=== PATIENT | female | born 1985 | race Caucasian/White ===

== ENCOUNTER 2017-01-27 09:46 | Inpatient (IN) | payer BC, OTHER ==
--- NOTE | 2017-01-27 10:10 | PCM.PREANE ---
Preanesthetic Assessment - Anesthesia/Transfusion/Family Hx Anesthesia History: Prior Anesthesia Without Reaction Family History of Anesthesia Reaction: No Transfusion History: No Prior Transfusion(s) - Review of Systems General: No Symptoms Pulmonary: No Symptoms Cardiovascular: No Symptoms Gastrointestinal: No symptoms, Other (GERD of ) Neurological: Headache (hx of migraine(s)) Other: Reports: None - Physical Assessment Height: 5 ft 4 in Weight: 167 lb ASA Class: 2 Mental Status: Alert & Oriented x3 Airway Class: Mallampati = 1 Dentition: Reports: Normal Dentition Thyro-Mental Finger Breadths: 3 Mouth Opening Finger Breadths: 3 ROM/Head Extension: Full Lungs: Clear to auscultation, Normal respiratory effort Cardiovascular: Regular Rate, Regular Rhythm, No Murmurs - Allergies Allergies/Adverse Reactions: Allergies Allergy/AdvReac Type Severity Reaction Status Date / Time Sulfa (Sulfonamide Allergy Hives Verified 01/22/17 14:33 Antibiotics) - Blood Blood Available: Yes Product(s) Available: PRBC (T and S) - Anesthesia Plan Pre-Op Medication Ordered: Antacids - Acknowledgements Anesthesia Type Planned: Spinal Pt an Appropriate Candidate for the Planned Anesthesia: Yes Alternatives and Risks of Anesthesia Discussed w Pt/Guardian: Yes Pt/Guardian Understands and Agrees with Anesthesia Plan: Yes PreAnesthesia Questionnaire Other HEENT History: wears glasses/contacts Cardiovascular History: Reports: Hypertension Other Cardiovascular History: hx of hypertention with previous , none now Respiratory History: Reports: Asthma Other Respiratory History: hx of asthma as a child, outgrew it Gastrointestinal History: Reports: Chronic Constipation Genitourinary History: Reports: None MANAGER CLIENT SERVICE History: Reports: Musculoskeletal History: Reports: None Neurological History: Reports: Migraines Psychiatric History: Reports: None Endocrine/Metabolic History: Reports: None Hematologic History: Reports: None Immunologic History: Reports: None Oncologic (Cancer) History: Reports: None Dermatologic History: Reports: None - Past Surgical History Head Surgeries/Procedures: Reports: None HEENT Surgical History: Reports: Oral Surgery Other HEENT Surgeries/Procedures: dental Cardiovascular Surgical History: Reports: None Respiratory Surgical History: Reports: None GI Surgical History: Reports: None Female Surgical History: Reports: Breast Biopsy, Section Endocrine Surgical History: Reports: None Neurological Surgical History: Reports: None Musculoskeletal Surgical History: Reports: None Oncologic Surgical History: Reports: None Dermatological Surgical History: Reports: None - SUBSTANCE USE Smoking Status *Q: Never Smoker Recreational Drug Use History: No - HOME MEDS Home Medications: Home Meds Aspirin [Adult Low Dose Aspirin EC] 81 mg PO ASDIRECTED 01/22/17 [History] Iron 18 mg PO DAILY 01/22/17 [History] Vit No.78/Iron/Fa [Prenatabs FA] 1 tab PO DAILY 01/22/17 [History]
[2017-01-27] MEDS ORDERED: Sodium Chloride 0.9% 10 ML Syringe FLUSH PRN (10:11)
[2017-01-27] MEDS ORDERED: Sodium Chloride 0.9% 2.5 ML Syringe FLUSH PRN (10:11)
[2017-01-27] MEDS ORDERED: Citric Acid/Sodium Citrate Solution 30 ML Cup PO SCH (10:15)
[2017-01-27] MEDS ORDERED: Ondansetron 4 MG/2 ML SDV ONE (10:21)
[2017-01-27] MEDS ORDERED: Sodium Chloride 0.9% 20 ML ONE (10:21)
[2017-01-27] MEDS ORDERED: Oxytocin 10 Units/1 ML SDV ONE (10:21)
[2017-01-27] MEDS ORDERED: ePHEDrine 50 MG/ML SDV ONE (10:21)
[2017-01-27] MEDS ORDERED: ceFAZolin 1 GM Vial ONE (10:21)
[2017-01-27] MEDS ORDERED: Morphine PF 10 MG/10 ML SDV ONE (10:24)
[2017-01-27] MEDS: Lactated Ringers 1,000 ML IV SCH ×2 (10:55→11:22)
[2017-01-27] MEDS ORDERED: fentaNYL 100 MCG/2 ML SDV ONE (12:41)
[2017-01-27] MEDS ORDERED: Phenylephrine/Normal Saline 100 MCG/ML 10 ML Syringe ONE (12:55)
[2017-01-27] MEDS ORDERED: diphenhydrAMINE 50 MG/ML SDV IVPUSH PRN ×2 (13:16→13:48)
[2017-01-27] MEDS ORDERED: Simethicone 80 MG Tab.Chew PO PRN (13:16)
[2017-01-27] MEDS ORDERED: Ondansetron 4 MG/2 ML SDV IV PRN (13:16)
[2017-01-27] MEDS ORDERED: Acetaminophen/oxyCODONE 325-5 MG Tab PO PRN ×2 (13:16→13:50)
[2017-01-27] MEDS ORDERED: Lanolin 100% Cream 7 GM Tube TOP PRN (13:16)
[2017-01-27] MEDS ORDERED: Bisacodyl 10 MG Supp RECTAL PRN (13:16)
[2017-01-27] MEDS ORDERED: Ibuprofen 800 MG Tab PO PRN (13:16)
[2017-01-27] MEDS ORDERED: Aluminum Hydroxide/Magnesium Hydroxide/Simethicone Susp 30 ML Cup PO PRN (13:16)
[2017-01-27] MEDS ORDERED: Metoclopramide 10 MG/2 ML SDV ONE (13:16)
--- NOTE | 2017-01-27 13:26 | PCM.OPNOTE ---
- General Post-Op/Procedure Note Date of Surgery/Procedure: 01/27/17 Operative Procedure(s): Repeat LTCS Findings: Term male APGARs 8, 9 weight 8 lb 3 oz Intact placenta with 3 V cord Pre Op Diagnosis: 39 week IUP. Previous LTCs, desires repeat Post-Op Diagnosis: Same Anesthesia Technique: Spinal Primary Surgeon: Vashti Curtis Fluid Replacement, Intraop: 1,200 EBL in mLs: 500 Complications: None known Condition: Good Free Text/Narrative:: Dictation [id number]
[2017-01-27] MEDS ORDERED: Lactated Ringers 1,000 ML IV SCH (13:30)
[2017-01-27] MEDS: Ketorolac 30 MG/ML SDV IVPUSH SCH ×2 (13:36→19:40)
[2017-01-27] MEDS ORDERED: Nalbuphine 10 MG/1 ML Vial IVPUSH PRN (13:48)
[2017-01-27] MEDS ORDERED: Naloxone 0.4 MG/ML Syringe IVPUSH PRN (13:48)
[2017-01-27] MEDS ORDERED: fentaNYL 100 MCG/2 ML SDV IVPUSH PRN (13:50)
--- NOTE | 2017-01-27 14:47 | PCM.POSTAN ---
POST ANESTHESIA ASSESSMENT - MENTAL STATUS Mental Status: alert, oriented - RESPIRATORY Respiratory Status: respiratory rate WNL, airway patent, O2 saturation stable - CARDIOVASCULAR CV Status: pulse rate WNL, blood pressure stable - GASTROINTESTINAL GI Status: no symptoms - POST OP HYDRATION Hydration Status: adequate & stable
--- NOTE | 2017-01-27 14:52 | OR ---
SURGEON: Vashti Curtis M.D. DATE OF PROCEDURE: 01/27/2017 PREOPERATIVE DIAGNOSES: 1. A 39 weeks intrauterine . 2. Previous section, desires repeat. POSTOPERATIVE DIAGNOSES: 1. A 39 weeks intrauterine . 2. Previous section, desires repeat. PROCEDURE: Repeat low transverse section. ESTIMATED BLOOD LOSS: 500 mL. ANESTHESIA: Spinal. FLUIDS: 1200 mL crystalloid. COMPLICATIONS: None. FINDINGS: Term male , score 8 at 1 minute, 9 at 5 minutes. Weight of 8 pounds 3 ounces. Intact placenta, 3-vessel cord. Normal appearing pelvis. DISPOSITION: The patient to PACU, nursery, stable. PROCEDURE IN DETAIL: Chana is a 31-year-old, G2, P1, at 39 weeks gestational age, who presents today for scheduled repeat delivery. Risks of the procedure have been discussed with her. Proper consent was obtained. The patient was taken to the operating room where she underwent spinal anesthetic, was then placed in the dorsal lithotomy position with leftward tilt. SCDs to lower extremities. Orellana to gravity. She was prepped and draped in the usual sterile fashion. Ancef delivered via IV for prophylactic measures. A time-out was performed. Anesthesia was tested and found to be adequate. Previous Pfannenstiel scar was now excised, carried down to the level of the rectus fascia. Rectus fascia was then incised in midline and lateralized on either side sharply and bluntly. The superior aspect of fascia was tented upward, dissected sharply and bluntly away from underlying muscle from the inferior aspect of the fascia. Rectus muscles in the midline. The peritoneum was tented upward and entered sharply. The peritoneum was now lateralized bluntly. Uterine position and position palpated. Self-retaining retractor gently placed. Uterovesical reflection was visualized. Bladder flap was created sharply and bluntly. Bladder was mobilized away from lower uterine segment. Low transverse hysterotomy was now performed. Uterine cavity was entered with the blunt end of the scalpel. Hysterotomy was lateralized bluntly. Amniotomy revealed light meconium-stained amniotic fluid. The infant's head was flexed, delivered from the pelvis. Fundal pressure was applied. The 's head was delivered followed by anterior shoulder, posterior shoulder, main body without difficulty. The infant's oropharynx and nares were bulb suctioned. Cord clamped x2 and cut. Infant was handed off to attending nursing staff. Cord arterial, cord venous, cord blood samples obtained. The placenta was now delivered intact after obtaining the arterial venous and cord blood gases. The uterine cavity was cleared of all clot and debris. Hysterotomy was repaired using 0 Vicryl in continuous running locked fashion, re-imbricated with 0 Vicryl in continuous running fashion. Posterior aspect of the uterus was inspected, no defects or hematomas were found be forming. The region was well irrigated suction dried. Colonic gutters were now cleared of all clot and debris, well irrigated suction dried. The hysterotomy was once again inspected. Serosal oozing was cauterized. Area in the midline was still having some bleeding, therefore, was to be plicated with [id number] suture. Hemostasis appears evident. The self-retaining retractor now gently removed. Bladder blade was placed. Hysterotomy once again inspected, found to be hemostatic. The bladder blade was now removed. Rectus muscles were reapproximated with inverted mattress suture technique using 0 Vicryl. The anterior aspect of the muscle, posterior aspect of fascia was closely inspected. Any oozing were cauterized. The rectus fascia was reapproximated using 0 Vicryl in continuous running fashion beginning laterally on either side meeting in the midline. Subcutaneous tissue was well irrigated and suction dried. Any areas of oozing were cauterized. The skin edges were reapproximated using 3-0 Vicryl subcuticular fashion on a Juan Manuel needle and the incision was reimbricated with 1/2-inch Steri- Strips and Mastisol. The uterus remained firm. Sponge, instrument, and needle counts correct x2. The patient tolerated the procedure well. She will go to PACU in stable condition and infant to nursery. DANE / KOJO /[id number]
--- NOTE | 2017-01-27 17:28 | PCM.SN ---
- Free Text/Narrative Note: Having some nausea and light headedness. Otherwise, pain controlled. Denies chest pain or headache. Just received zofran. BP 141/77, pulse 89, afebrile Will treat with antiemetics as needed, encouraged rest. going well.
[2017-01-28] MEDS: Ketorolac 30 MG/ML SDV IVPUSH SCH ×3 (01:25→13:38)
[2017-01-28] MEDS: Docusate Sodium 100 MG Cap PO SCH ×3 (01:25→21:00)
--- NOTE | 2017-01-28 06:59 | PCM.PNPP ---
- General Info Date of Service: 01/28/17 Subjective Update: Patient is feeling better this morning, denies nausea or light headedness. Pain is well controlled. Rested through the night. Functional Status: Reports: pain controlled, tolerating diet - Review of Systems Pulmonary: Denies: shortness of breath Cardiovascular: Denies: Chest Pain, Palpitations, Lightheadedness Gastrointestinal: Denies: Nausea, Vomiting Genitourinary: Denies: flank pain Psychiatric: Reports: no symptoms - General Info Date of Service: 01/28/17 - Patient Data Vital Signs - most recent: Last Vital Signs Temp 36.6 C 01/28/17 05:00 Pulse 80 01/28/17 05:00 Resp 14 01/28/17 06:00 BP 130/73 01/28/17 05:00 Pulse Ox 98 01/28/17 06:00 Weight - most recent: 75.75 kg I&O - last 24 hours: Intake & Output 01/27/17 01/27/17 01/28/17 14:59 22:59 06:59 Intake Total 3200 1800 Output Total 200 1500 Balance 3000 300 Lab Results - last 24 hrs: Laboratory Results - last 24 hr 01/27/17 01/27/17 01/28/17 Range/Units 10:44 10:44 04:56 WBC 11.42 H (4.0-11.0) K/uL RBC 4.15 L (4.30-5.90) M/uL Hgb 12.0 9.4 L (12.0-16.0) g/dL Hct 36.0 28.5 L (36.0-46.0) % MCV 86.7 (80.0-98.0) fL MCH 28.9 (27.0-32.0) pg MCHC 33.3 (31.0-37.0) g/dL RDW Std Deviation 41.1 (28.0-62.0) fl RDW Coeff of Sergio 13 (11.0-15.0) % Plt Count 279 (150-400) K/uL MPV 9.30 (7.40-12.00) fL Nucleated RBC % 0.0 /100WBC Nucleated RBCs # 0 K/uL Blood Type A POSITIVE Antibody Screen NEGATIVE Med Orders - Current: Current Medications Al Hydroxide/Mg Hydroxide (Mag-Al Plus) 30 ml PO Q8H PRN PRN Reason: Heartburn Bisacodyl (Dulcolax) 10 mg RECTAL .ONCE PRN PRN Reason: Constipation Citric Acid/Sodium Citrate (Bicitra Solution) 30 ml PO .ONCE FORMERLY [facility], [facility]1983 Last Admin: 01/27/17 12:16 Dose: 30 ml Diphenhydramine HCl (Benadryl) 25 mg IVPUSH Q6H PRN PRN Reason: Itching or Nausea Diphenhydramine HCl (Benadryl) 12.5 - 25 mg IVPUSH Q4H PRN PRN Reason: Itching Stop: 01/28/17 13:49 Last Admin: 01/27/17 17:55 Dose: 12.5 mg Docusate Sodium (Colace) 100 mg PO BID [facility], [facility]1983 Last Admin: 01/28/17 01:25 Dose: 100 mg Emollient Ointment (Lansinoh Hpa) 0 gm TOP ASDIRECTED PRN PRN Reason: Sore Nipples Fentanyl (Sublimaze) 25 - 50 mcg IVPUSH Q30M PRN PRN Reason: Pain Lactated Ringer's (Ringers, Lactated) 1,000 mls @ 500 mls/hr IV .BOLUS FOR[facility], [facility]1983 Last Admin: 01/27/17 11:22 Dose: 500 mls/hr Lactated Ringer's (Ringers, Lactated) 1,000 mls @ 125 mls/hr IV ASDIRECTED [facility], 1928[facility]1983 Last Admin: 01/27/17 19:49 Dose: 125 mls/hr Ibuprofen (Motrin) 800 mg PO Q8H PRN PRN Reason: mild pain or fever Ketorolac Tromethamine (Toradol) 30 mg IVPUSH Q6H [facility]1983 Stop: 01/28/17 13:31 Last Admin: 01/28/17 01:25 Dose: 30 mg Nalbuphine HCl (Nubain) 5 mg IVPUSH Q3H PRN PRN Reason: Pruritis Stop: 01/28/17 13:49 Naloxone HCl (Narcan) 0.1 mg IVPUSH ONETIME PRN PRN Reason: Other Stop: 01/28/17 13:50 Ondansetron HCl (Zofran) 4 mg IV Q4H PRN PRN Reason: Nausea/Vomiting Last Admin: 01/27/17 16:54 Dose: 4 mg Oxycodone/Acetaminophen (Percocet 325-5 Mg) 1 tab PO Q4H PRN PRN Reason: Pain (moderate 4-6) Oxycodone/Acetaminophen (Percocet 325-5 Mg) 2 tab PO Q4H PRN PRN Reason: Pain (moderate 4-6) Oxycodone/Acetaminophen (Percocet 325-5 Mg) 1 - 2 tab PO Q6H PRN PRN Reason: Pain Stop: 01/29/17 14:00 Simethicone (Simethicone) 80 mg PO Q4H PRN PRN Reason: Gas Sodium Chloride (Saline Flush) 10 ml FLUSH ASDIRECTED PRN PRN Reason: Keep Vein Open Sodium Chloride (Saline Flush) 2.5 ml FLUSH ASDIRECTED PRN PRN Reason: Keep Vein Open Discontinued Medications Cefazolin Sodium (Ancef) Confirm Administered Dose 1 gm .ROUTE .STK-MED ONE Stop: 01/27/17 10:22 Ephedrine Sulfate (Ephedrine Sulfate) Confirm Administered Dose 50 mg .ROUTE .STK-MED ONE Stop: 01/27/17 10:22 Fentanyl (Sublimaze) Confirm Administered Dose 100 mcg .ROUTE .STK-MED ONE Stop: 01/27/17 12:42 Glycopyrrolate () Confirm Administered Dose 1 mg .ROUTE .STK-MED ONE Stop: 01/27/17 12:46 Sodium Chloride (Normal Saline) Confirm Administered Dose 20 mls @ as directed .ROUTE .STK-MED ONE Stop: 01/27/17 10:22 Metoclopramide HCl (Reglan) Confirm Administered Dose 10 mg .ROUTE .STK-MED ONE Stop: 01/27/17 13:17 Morphine Sulfate (Duramorph Pf) Confirm Administered Dose 10 mg .ROUTE .STK-MED ONE Stop: 01/27/17 10:25 Ondansetron HCl (Zofran) Confirm Administered Dose 4 mg .ROUTE .STK-MED ONE Stop: 01/27/17 10:22 Oxytocin (Pitocin) Confirm Administered Dose 20 unit .ROUTE .STK-MED ONE Stop: 01/27/17 10:22 Phenylephrine HCl (Phenylephrine In Ns 100 Mcg/Ml) Confirm Administered Dose 1 mg .ROUTE .STK-MED ONE Stop: 01/27/17 12:56 - Infant Interaction Disposition, : in Room with Family Infant Interaction: Holding Infant Feeding: Breastfed ; Nursed Well Support Person: - Recovery Exam Fundal Tone: Firm Fundal Level: 1 Fingerbreadths Below Umbilicus Fundal Placement: Midline Lochia Amount: Scant Lochia Color: Rubra/Red Perineum Description: Intact, Minimal Bruising/Swelling Episiotomy/Laceration: None Bladder Status: Indwelling Catheter in Place Urinary Elimination: Indwelling Catheter - Exam General: alert, oriented Lungs: Normal respiratory effort Cardiovascular: Regular Rate, Regular Rhythm Abdomen: bowel sounds present, soft. No: CVA tenderness Extremities: no calf tenderness Skin: warm, dry, intact Psy/Mental Status: alert, normal affect - Problem List & Annotations (1) delivery delivered SNOMED Code(s): 162217272 Code(s): O82 - ENCOUNTER FOR DELIVERY WITHOUT INDICATION Status: Acute Current Visit: Yes - Problem List Review Problem List Initiated/Reviewed/Updated: Yes - My Orders Last 24 Hours: My Active Orders 01/27/17 10:11 Patient Status [ADT] Routine Up ad Jessica [RC] ASDIRECTED Sodium Chloride 0.9% [Saline Flush] 10 ml FLUSH ASDIRECTED PRN Sodium Chloride 0.9% [Saline Flush] 2.5 ml FLUSH ASDIRECTED PRN Peripheral IV Insertion Adult [OM.PC] Routine Schedule Procedure [COMM] Per Unit Routine Resuscitation Status Routine 01/27/17 10:15 Notify Provider Vital Signs [RC] PRN Citric Acid/Sodium Citrate [Bicitra Solution] 30 ml PO .ONCE Lactated Ringers [Ringers, Lactated] 1,000 ml IV .BOLUS 01/27/17 13:16 Patient Status [ADT] Routine Ambulate [RC] PER UNIT ROUTINE Antiembolic Devices [RC] PER UNIT ROUTINE Communication Order [RC] PER UNIT ROUTINE Communication Order [RC] PER UNIT ROUTINE Communication Order [RC] Per Unit Routine May Shower [RC] ASDIRECTED Notify Provider Intake and Out [RC] ASDIRECTED Notify Provider Vital Signs [RC] ASDIRECTED RT Incentive Spirometry [RC] Q2HWA Acetaminophen/oxyCODONE [Percocet 325-5 MG] 1 tab PO Q4H PRN Acetaminophen/oxyCODONE [Percocet 325-5 MG] 2 tab PO Q4H PRN Alum Hydrox/Mag Hydrox/Simeth [Mag-Al Plus] 30 ml PO Q8H PRN Bisacodyl [Dulcolax] 10 mg RECTAL .ONCE PRN Ibuprofen [Motrin] 800 mg PO Q8H PRN Lanolin [Lansinoh HPA] See Dose Instructions TOP ASDIRECTED PRN Ondansetron [Zofran] 4 mg IV Q4H PRN Simethicone 80 mg PO Q4H PRN diphenhydrAMINE [Benadryl] 25 mg IVPUSH Q6H PRN Abdominal Binder [OM.PC] Routine Assess Lochia [WOMSER] Per Unit Routine Assess Uterine Involution [WOMSER] Per Unit Routine Breast Pump [WOMSER] Per Unit Routine Heat Therapy [OM.PC] Routine Ice Therapy [OM.PC] Routine Peripheral IV Discontinue [OM.PC] Routine Sequential Compression Device [OM.PC] Per Unit Routine 01/27/17 13:30 Ketorolac [Toradol] 30 mg IVPUSH Q6H Lactated Ringers [Ringers, Lactated] 1,000 ml IV ASDIRECTED 01/27/17 21:00 Docusate Sodium [Colace] 100 mg PO BID 01/27/17 Dinner Regular Diet [DIET] - Assessment Assessment:: POD 1 status post Repeat LTCS - Plan Plan:: Continue postoperative cares, ambulate halls, may shower today. VS are stable. DC iv later today once toradol dosing completed.
--- NOTE | 2017-01-28 07:41 | PCM48HPAN ---
Post Anesthesia Note - EVALUATION WITHIN 48HRS OF ANESTHETIC Vital Signs in Normal Range: Yes Patient Participated in Evaluation: Yes Respiratory Function Stable: Yes Airway Patent: Yes Cardiovascular Function Stable: Yes Hydration Status Stable: Yes Pain Control Satisfactory: Yes Nausea and Vomiting Control Satisfactory: Yes Mental Status Recovered: Yes - COMMENTS/OBSERVATIONS Free Text/Narrative:: Pt states nausea continued until about 8PM, but no problems since. Pain well controlled. No apparent anesthesia complications.
[2017-01-29] MEDS: Acetaminophen/oxyCODONE 325-5 MG Tab PO PRN ×2 (00:08→09:22)
--- NOTE | 2017-01-29 08:20 | PCM.PNPP ---
[id number] Status: Reports: pain controlled, tolerating diet, ambulating, urinating - Review of Systems General: Denies: Fever, Weakness, Fatigue Pulmonary: Denies: shortness of breath, pleuritic chest pain, cough Cardiovascular: Denies: Chest Pain, Palpitations, Dyspnea on Exertion Gastrointestinal: Denies: Abdominal pain Genitourinary: Denies: dysuria Psychiatric: Reports: no symptoms - General Info Date of Service: 01/29/17 - Patient Data Vital Signs - most recent: Last Vital Signs Temp 35.5 C 01/29/17 04:00 Pulse 70 01/29/17 04:00 Resp 14 01/29/17 04:00 BP 141/79 H 01/29/17 04:00 Pulse Ox 100 01/29/17 04:00 Weight - most recent: 75.75 kg Med Orders - Current: Current Medications Al Hydroxide/Mg Hydroxide (Mag-Al Plus) 30 ml PO Q8H PRN PRN Reason: Heartburn Bisacodyl (Dulcolax) 10 mg RECTAL .ONCE PRN PRN Reason: Constipation Citric Acid/Sodium Citrate (Bicitra Solution) 30 ml PO .ONCE ON LICENSE OF [facility] Last Admin: 01/27/17 12:16 Dose: 30 ml Diphenhydramine HCl (Benadryl) 25 mg IVPUSH Q6H PRN PRN Reason: Itching or Nausea Docusate Sodium (Colace) 100 mg PO BID ON LICENSE OF [facility] Last Admin: 01/28/17 21:00 Dose: Not Given Emollient Ointment (Lansinoh Hpa) 0 gm TOP ASDIRECTED PRN PRN Reason: Sore Nipples Last Admin: 01/29/17 05:21 Dose: 1 gm Fentanyl (Sublimaze) 25 - 50 mcg IVPUSH Q30M PRN PRN Reason: Pain Lactated Ringer's (Ringers, Lactated) 1,000 mls @ 500 mls/hr IV .BOLUS ON LICENSE OF [facility] Last Admin: 01/27/17 11:22 Dose: 500 mls/hr Lactated Ringer's (Ringers, Lactated) 1,000 mls @ 125 mls/hr IV ASDIRECTED ON LICENSE OF [facility] Last Admin: 01/27/17 19:49 Dose: 125 mls/hr Ibuprofen (Motrin) 800 mg PO Q8H PRN PRN Reason: mild pain or fever Last Admin: 01/28/17 17:42 Dose: 800 mg Ondansetron HCl (Zofran) 4 mg IV Q4H PRN PRN Reason: Nausea/Vomiting Last Admin: 01/27/17 16:54 Dose: 4 mg Oxycodone/Acetaminophen (Percocet 325-5 Mg) 1 tab PO Q4H PRN PRN Reason: Pain (moderate 4-6) Last Admin: 01/29/17 00:08 Dose: 0.5 tab Oxycodone/Acetaminophen (Percocet 325-5 Mg) 2 tab PO Q4H PRN PRN Reason: Pain (moderate 4-6) Oxycodone/Acetaminophen (Percocet 325-5 Mg) 1 - 2 tab PO Q6H PRN PRN Reason: Pain Stop: 01/29/17 14:00 Simethicone (Simethicone) 80 mg PO Q4H PRN PRN Reason: Gas Sodium Chloride (Saline Flush) 10 ml FLUSH ASDIRECTED PRN PRN Reason: Keep Vein Open Sodium Chloride (Saline Flush) 2.5 ml FLUSH ASDIRECTED PRN PRN Reason: Keep Vein Open Discontinued Medications Cefazolin Sodium (Ancef) Confirm Administered Dose 1 gm .ROUTE .STK-MED ONE Stop: 01/27/17 10:22 Diphenhydramine HCl (Benadryl) 12.5 - 25 mg IVPUSH Q4H PRN PRN Reason: Itching Stop: 01/28/17 13:49 Last Admin: 01/27/17 17:55 Dose: 12.5 mg Ephedrine Sulfate (Ephedrine Sulfate) Confirm Administered Dose 50 mg .ROUTE .STK-MED ONE Stop: 01/27/17 10:22 Fentanyl (Sublimaze) Confirm Administered Dose 100 mcg .ROUTE .STK-MED ONE Stop: 01/27/17 12:42 Glycopyrrolate () Confirm Administered Dose 1 mg .ROUTE .STK-MED ONE Stop: 01/27/17 12:46 Sodium Chloride (Normal Saline) Confirm Administered Dose 20 mls @ as directed .ROUTE .STK-MED ONE Stop: 01/27/17 10:22 Ketorolac Tromethamine (Toradol) 30 mg IVPUSH Q6H JANET Stop: 01/28/17 13:31 Last Admin: 01/28/17 13:38 Dose: 30 mg Metoclopramide HCl (Reglan) Confirm Administered Dose 10 mg .ROUTE .STK-MED ONE Stop: 01/27/17 13:17 Morphine Sulfate (Duramorph Pf) Confirm Administered Dose 10 mg .ROUTE .STK-MED ONE Stop: 01/27/17 10:25 Nalbuphine HCl (Nubain) 5 mg IVPUSH Q3H PRN PRN Reason: Pruritis Stop: 01/28/17 13:49 Naloxone HCl (Narcan) 0.1 mg IVPUSH ONETIME PRN PRN Reason: Other Stop: 01/28/17 13:50 Ondansetron HCl (Zofran) Confirm Administered Dose 4 mg .ROUTE .STK-MED ONE Stop: 01/27/17 10:22 Oxytocin (Pitocin) Confirm Administered Dose 20 unit .ROUTE .STK-MED ONE Stop: 01/27/17 10:22 Phenylephrine HCl (Phenylephrine In Ns 100 Mcg/Ml) Confirm Administered Dose 1 mg .ROUTE .STK-MED ONE Stop: 01/27/17 12:56 - Infant Interaction Infant Disposition, : in Room with Family Interaction: Holding Infant Feeding: Breastfed Infant; Nursed Well Support Person: - Recovery Exam Fundal Tone: Firm Fundal Level: 1 Fingerbreadths Below Umbilicus Fundal Placement: Midline Lochia Amount: Scant Lochia Color: Rubra/Red Perineum Description: Intact, Minimal Bruising/Swelling Episiotomy/Laceration: None Bladder Status: Voiding Urinary Elimination: Voided - Exam Lungs: Clear to auscultation, Normal respiratory effort Cardiovascular: Regular Rate, Regular Rhythm Abdomen: bowel sounds present, soft, no tenderness, no distension Extremities: edema (trace) Psy/Mental Status: alert, normal affect, normal mood - Problem List Review Problem List Initiated/Reviewed/Updated: Yes - Assessment Assessment:: POD 2 status post Repeat LTCS. Minimal pain and lochia. Discharge home today. - Plan Plan:: Discharge home today. Nothing in the vagina for 6 weeks. Continue PNV while breast feeding. Rx for Percocet to use as needed for pain. No lifting greater than 10lbs. Instructed patient to call if she develops fever greater than 101 or bleeding through a large pad an hour. F/U with [facility] in 2 and 6 weeks. <Vashti Curtis Jonny - Last Filed: 01/29/17 09:27> - Patient Data Vital Signs - most recent: Last Vital Signs Temp 35.5 C 01/29/17 04:00 Pulse 70 01/29/17 04:00 Resp 14 01/29/17 04:00 BP 141/79 H 01/29/17 04:00 Pulse Ox 100 01/29/17 04:00 Med Orders - Current: Current Medications Al Hydroxide/Mg Hydroxide (Mag-Al Plus) 30 ml PO Q8H PRN PRN Reason: Heartburn Bisacodyl (Dulcolax) 10 mg RECTAL .ONCE PRN PRN Reason: Constipation Citric Acid/Sodium Citrate (Bicitra Solution) 30 ml PO .ONCE ON LICENSE OF [facility] Last Admin: 01/27/17 12:16 Dose: 30 ml Diphenhydramine HCl (Benadryl) 25 mg IVPUSH Q6H PRN PRN Reason: Itching or Nausea Docusate Sodium (Colace) 100 mg PO BID ON LICENSE OF [facility] Last Admin: 01/29/17 09:09 Dose: 100 mg Emollient Ointment (Lansinoh Hpa) 0 gm TOP ASDIRECTED PRN PRN Reason: Sore Nipples Last Admin: 01/29/17 05:21 Dose: 1 gm Fentanyl (Sublimaze) 25 - 50 mcg IVPUSH Q30M PRN PRN Reason: Pain Lactated Ringer's (Ringers, Lactated) 1,000 mls @ 500 mls/hr IV .BOLUS ON LICENSE OF [facility] Last Admin: 01/27/17 11:22 Dose: 500 mls/hr Lactated Ringer's (Ringers, Lactated) 1,000 mls @ 125 mls/hr IV ASDIRECTED ON LICENSE OF [facility] Last Admin: 01/27/17 19:49 Dose: 125 mls/hr Ibuprofen (Motrin) 800 mg PO Q8H PRN PRN Reason: mild pain or fever Last Admin: 01/28/17 17:42 Dose: 800 mg Ondansetron HCl (Zofran) 4 mg IV Q4H PRN PRN Reason: Nausea/Vomiting Last Admin: 01/27/17 16:54 Dose: 4 mg Oxycodone/Acetaminophen (Percocet 325-5 Mg) 1 tab PO Q4H PRN PRN Reason: Pain (moderate 4-6) Last Admin: 01/29/17 09:22 Dose: 1 tab Oxycodone/Acetaminophen (Percocet 325-5 Mg) 2 tab PO Q4H PRN PRN Reason: Pain (moderate 4-6) Oxycodone/Acetaminophen (Percocet 325-5 Mg) 1 - 2 tab PO Q6H PRN PRN Reason: Pain Stop: 01/29/17 14:00 Simethicone (Simethicone) 80 mg PO Q4H PRN PRN Reason: Gas Sodium Chloride (Saline Flush) 10 ml FLUSH ASDIRECTED PRN PRN Reason: Keep Vein Open Sodium Chloride (Saline Flush) 2.5 ml FLUSH ASDIRECTED PRN PRN Reason: Keep Vein Open Discontinued Medications Cefazolin Sodium (Ancef) Confirm Administered Dose 1 gm .ROUTE .STK-MED ONE Stop: 01/27/17 10:22 Diphenhydramine HCl (Benadryl) 12.5 - 25 mg IVPUSH Q4H PRN PRN Reason: Itching Stop: 01/28/17 13:49 Last Admin: 01/27/17 17:55 Dose: 12.5 mg Ephedrine Sulfate (Ephedrine Sulfate) Confirm Administered Dose 50 mg .ROUTE .STK-MED ONE Stop: 01/27/17 10:22 Fentanyl (Sublimaze) Confirm Administered Dose 100 mcg .ROUTE .STK-MED ONE Stop: 01/27/17 12:42 Glycopyrrolate () Confirm Administered Dose 1 mg .ROUTE .STK-MED ONE Stop: 01/27/17 12:46 Sodium Chloride (Normal Saline) Confirm Administered Dose 20 mls @ as directed .ROUTE .STK-MED ONE Stop: 01/27/17 10:22 Ketorolac Tromethamine (Toradol) 30 mg IVPUSH Q6H JANET Stop: 01/28/17 13:31 Last Admin: 01/28/17 13:38 Dose: 30 mg Metoclopramide HCl (Reglan) Confirm Administered Dose 10 mg .ROUTE .STK-MED ONE Stop: 01/27/17 13:17 Morphine Sulfate (Duramorph Pf) Confirm Administered Dose 10 mg .ROUTE .STK-MED ONE Stop: 01/27/17 10:25 Nalbuphine HCl (Nubain) 5 mg IVPUSH Q3H PRN PRN Reason: Pruritis Stop: 01/28/17 13:49 Naloxone HCl (Narcan) 0.1 mg IVPUSH ONETIME PRN PRN Reason: Other Stop: 01/28/17 13:50 Ondansetron HCl (Zofran) Confirm Administered Dose 4 mg .ROUTE .STK-MED ONE Stop: 01/27/17 10:22 Oxytocin (Pitocin) Confirm Administered Dose 20 unit .ROUTE .STK-MED ONE Stop: 01/27/17 10:22 Phenylephrine HCl (Phenylephrine In Ns 100 Mcg/Ml) Confirm Administered Dose 1 mg .ROUTE .STK-MED ONE Stop: 01/27/17 12:56 - Problem List & Annotations (1) delivery delivered SNOMED Code(s): 218942589 Code(s): O82 - ENCOUNTER FOR DELIVERY WITHOUT INDICATION Status: Acute Current Visit: Yes - Plan Plan:: Patient seen and examined--agree with above. To start wellbutrin for PP depression prophylaxis given history of PP depression. Agree with discharge to home
[2017-01-29] MEDS: Docusate Sodium 100 MG Cap PO SCH (09:09)
== END 2017-01-29 12:40 | disposition home or self-care (01) | DRG 540 ==
LOC: UNDOADMIN 09:46 → MW.OB 09:46
PROVIDERS: ADMIT Obstetrics & Gynecology; ATTEND Obstetrics & Gynecology
PROC: 10D00Z1 Extraction of Products of Conception, Low, Open Approach (ICD-10-PCS; principal; 2017-01-27)
DX: O34.211 Maternal care for low transverse scar from previous cesarean delivery (principal); Z3A.39 39 weeks gestation of pregnancy; Z37.0 Single live birth
CPT/HCPCS: 01961; 36415; 85014; 85018; 85027; 86850; 86900; 86901; A9270-GY; J0690; J1200; J1885; J2270; J2405; J2590; J2765; J3010; J7120

== ENCOUNTER 2018-12-03 10:51 | Day surgery (SDC) | payer BC ==
[~2018-12-03 10:51] MED LIST: Lidocaine 2% 5 ML SDV ONE; Midazolam 1 MG/ML 2 ML SDV ONE; Ondansetron 4 MG/2 ML SDV ONE; Propofol 200 MG/20 ML SDV ONE; fentaNYL 250 MCG/5 ML SDV ONE
[2018-12-03] MEDS ORDERED: Sodium Chloride 0.9% 2.5 ML Syringe FLUSH PRN (11:28)
[2018-12-03] MEDS ORDERED: 50% Dextrose in Water 50 ML Syringe IVPUSH PRN (11:28)
[2018-12-03] MEDS ORDERED: EPINEPHrine 1:10,000 1 MG/10 ML Syringe IVPUSH PRN (11:28)
[2018-12-03] MEDS ORDERED: Albuterol 0.083% 2.5 MG/3 ML Neb Soln NEB PRN (11:28)
[2018-12-03] MEDS ORDERED: Atropine 0.1 MG/ML 10 ML Syringe IVPUSH PRN ×2 (11:28)
[2018-12-03] MEDS ORDERED: Sodium Chloride 0.9% 10 ML Syringe FLUSH PRN (11:28)
[2018-12-03] MEDS ORDERED: Naloxone 0.4 MG/ML Syringe IVPUSH PRN (11:28)
[2018-12-03] MEDS ORDERED: Sodium Chloride 0.9% 10 ML SDV IV PRN (11:28)
[2018-12-03] MEDS ORDERED: fentaNYL 100 MCG/2 ML SDV IVPUSH PRN (11:28)
--- NOTE | 2018-12-03 11:29 | PCM.PREANE ---
Preanesthetic Assessment - Anesthesia/Transfusion/Family Hx Anesthesia History: Prior Anesthesia Without Reaction Other Type of Anesthesia Reaction Comment: "nausea & vomiting after c/section" Family History of Anesthesia Reaction: No Transfusion History: No Prior Transfusion(s) - Review of Systems General: No Symptoms Pulmonary: No Symptoms Cardiovascular: No Symptoms Gastrointestinal: No Symptoms Neurological: No Symptoms Other: Reports: None - Physical Assessment Height: 5 ft 4 in Weight: 63.049 kg ASA Class: 2 Mental Status: Alert & Oriented x3 Airway Class: Mallampati = 2 Dentition: Reports: Normal Dentition Thyro-Mental Finger Breadths: 3 Mouth Opening Finger Breadths: 3 ROM/Head Extension: Full Lungs: Clear to Auscultation, Normal Respiratory Effort Cardiovascular: Regular Rate, Regular Rhythm - Allergies Allergies/Adverse Reactions: Allergies Allergy/AdvReac Type Severity Reaction Status Date / Time Sulfa (Sulfonamide Allergy Hives Verified 12/01/18 08:50 Antibiotics) - Acknowledgements Anesthesia Type Planned: General Anesthesia Pt an Appropriate Candidate for the Planned Anesthesia: Yes Alternatives and Risks of Anesthesia Discussed w Pt/Guardian: Yes Pt/Guardian Understands and Agrees with Anesthesia Plan: Yes PreAnesthesia Questionnaire HEENT History: Reports: Other (See Below) Other HEENT History: wears glasses/contacts Cardiovascular History: Reports: Other (See Below) Other Cardiovascular History: hx of hypertention with previous , none now Respiratory History: Reports: Asthma Other Respiratory History: hx of asthma as a child, outgrew it Gastrointestinal History: Reports: None Genitourinary History: Reports: None [employer] History: Reports: , Spontaneous (Incomplete) : 3 Para: 2 Musculoskeletal History: Reports: None Neurological History: Reports: Migraines Psychiatric History: Reports: Anxiety, Depression Endocrine/Metabolic History: Reports: None Hematologic History: Reports: None Immunologic History: Reports: None Oncologic (Cancer) History: Reports: None Dermatologic History: Reports: None - Infectious Disease History Infectious Disease History: Reports: None - Past Surgical History Head Surgeries/Procedures: Reports: None HEENT Surgical History: Reports: Adenoidectomy, LASIK, Oral Surgery, Tonsillectomy Cardiovascular Surgical History: Reports: None Respiratory Surgical History: Reports: None GI Surgical History: Reports: None Female Surgical History: Reports: Breast Implant, Section Endocrine Surgical History: Reports: None Neurological Surgical History: Reports: None Musculoskeletal Surgical History: Reports: None Oncologic Surgical History: Reports: None Dermatological Surgical History: Reports: Other (See Below) - SUBSTANCE USE Smoking Status *Q: Never Smoker Recreational Drug Use History: No - HOME MEDS Home Medications: Home Meds . [No Known Home Meds] 12/01/18 [History] - CURRENT (IN HOUSE) MEDS Current Meds: Current Medications Discontinued Medications Fentanyl (Sublimaze) Confirm Administered Dose 250 mcg .ROUTE .STK-MED ONE Stop: 12/03/18 09:47 Lidocaine (Xylocaine-Mpf 2%) Confirm Administered Dose 5 ml .ROUTE .STK-MED ONE Stop: 12/03/18 09:47 Midazolam HCl (Versed 1 Mg/Ml) Confirm Administered Dose 2 mg .ROUTE .STK-MED ONE Stop: 12/03/18 09:47 Ondansetron HCl (Zofran) Confirm Administered Dose 4 mg .ROUTE .STK-MED ONE Stop: 12/03/18 09:47 Propofol (Diprivan 20 Ml) Confirm Administered Dose 200 mg .ROUTE .STK-MED ONE Stop: 12/03/18 09:47
[2018-12-03] MEDS ORDERED: Lactated Ringers 1,000 ML IV SCH (11:30)
[2018-12-03] MEDS ORDERED: Scopolamine 1.5 MG Transdermal Patch TRDERM PRN (11:33)
[2018-12-03] MEDS ORDERED: Dexamethasone 4 MG/ML 5 ML MDV ONE (12:43)
[2018-12-03] MEDS ORDERED: Ketorolac 30 MG/ML SDV ONE (12:44)
--- NOTE | 2018-12-03 12:57 | PCM.OPNOTE ---
- General Post-Op/Procedure Note Date of Surgery/Procedure: 12/03/18 Operative Procedure(s): Suction D&C Findings: Products of conception Pre Op Diagnosis: Missed Post-Op Diagnosis: Completed Anesthesia Technique: General LMA Primary Surgeon: Vashti Curtis Fluid Replacement, Intraop: 1,000 EBL in mLs: 150 Complications: none known Condition: Good Free Text/Narrative:: Dictation [id number]
--- NOTE | 2018-12-03 13:17 | PCM.POSTAN ---
POST ANESTHESIA ASSESSMENT - MENTAL STATUS Mental Status: Alert, Oriented - RESPIRATORY Respiratory Status: Respiratory Rate WNL, Airway Patent, O2 Saturation Stable - CARDIOVASCULAR CV Status: Pulse Rate WNL, Blood Pressure Stable - GASTROINTESTINAL GI Status: No Symptoms - POST OP HYDRATION Hydration Status: Adequate & Stable
--- NOTE | 2018-12-03 13:36 | PCM48HPAN ---
Post Anesthesia Note - EVALUATION WITHIN 48HRS OF ANESTHETIC Vital Signs in Normal Range: Yes Patient Participated in Evaluation: Yes Respiratory Function Stable: Yes Airway Patent: Yes Cardiovascular Function Stable: Yes Hydration Status Stable: Yes Pain Control Satisfactory: Yes Nausea and Vomiting Control Satisfactory: Yes Mental Status Recovered: Yes Resp Rate: 16
--- NOTE | 2018-12-03 19:48 | OR ---
SURGEON: Vashti Curtis M.D. DATE OF PROCEDURE: 12/03/2018 PREOPERATIVE DIAGNOSIS: Missed . POSTOPERATIVE DIAGNOSIS: Completed . ANESTHESIA: General LMA. ESTIMATED BLOOD LOSS: 150 mL. FLUIDS: 1000 mL of crystalloid. FINDINGS: Products of conception. DISPOSITION: The patient to PACU in stable condition. INDICATIONS: Chana is a 33-year-old female who was recently diagnosed with approximately 8 weeks 6 day intrauterine demise. She initially attempted 2 separate dosings of vaginal Cytotec with no passage of tissue. At this point, she would like to proceed with surgical intervention in the form of suction D and C. Risks of procedure have been discussed. Proper consent obtained. DESCRIPTION OF PROCEDURE: The patient was taken to the operating room where she underwent general LMA, was placed in modified dorsal lithotomy position, was prepped and draped in the usual sterile manner. Bladder was drained. Time-out was performed. Speculum was introduced into the vagina. Anterior lip of the cervix was grasped with an Allis clamp. Cervix was gently dilated to 9 mm. Cervix was sounded to 9 cm. Using a 9 mm curved suction curette, this was gently introduced into the uterus to the fundus. Suction was now applied in the uterus. The uterine cavity was evacuated of products of conception. A gentle sharp curettage was now performed, felt that the uterus was adequately evacuated. Therefore, all instruments were removed from the vagina. Hemostasis remained evident. Specimen will go to pathology. Sponge and instrument counts were correct x2. The patient tolerated the procedure well overall. She will go to PACU in stable condition. DANE / KOJO /[id number]
== END 2018-12-03 13:41 | disposition home or self-care (01) ==
LOC: MW.SDS 10:51
PROVIDERS: ATTEND Obstetrics & Gynecology
DX: O02.1 Missed abortion (principal); I10 Essential (primary) hypertension; J45.909 Unspecified asthma, uncomplicated; Z88.2 Allergy status to sulfonamides
CPT/HCPCS: 59820; A9270; J1100; J1885; J2001; J2250; J2405; J2704; J3010; J7120; 88305

== ENCOUNTER 2023-06-03 16:18 | Emergency (ER) | payer BC ==
[2023-06-03] MEDS ORDERED: diphenhydrAMINE 50 MG/ML SDV IVPUSH ONE (16:30)
[2023-06-03] MEDS ORDERED: Sodium Chloride 0.9% 1,000 ML IV ONE (16:30)
[2023-06-03] MEDS ORDERED: Ketorolac 30 MG/ML SDV IVPUSH ONE (16:30)
[2023-06-03] MEDS ORDERED: Metoclopramide 10 MG/2 ML SDV IVPUSH ONE (16:30)
[2023-06-03 16:38] LABS: BASOPHILS ABSOLUTE AUTO 0.03 K/uL (0.00-0.20); BASOPHILS PERCENT AUTO 0.3 % (0.0-1.0); EOSINOPHILS ABSOLUTE AUTO 0.02 K/uL (0.00-0.45); EOSINOPHILS PERCENT AUTO 0.2 % (0.0-6.0); HEMATOCRIT 39.7 % (37.0-47.0); HEMOGLOBIN 13.3 g/dL (12.0-16.0); IMMATURE GRAN ABSOLUTE AUTO 0.03 K/uL (0.00-0.05); IMMATURE GRAN PERCENT AUTO 0.3 % (0.0-0.4); LYMPHOCYTES ABSOLUTE AUTO 2.02 K/uL (1.00-4.80); MEAN CORPUSCULAR HEMOGLOBIN 27.7 pg (28.0-32.0); MEAN CORPUSCULAR HGB CONC 33.5 g/dL (32.0-36.0); MEAN CORPUSCULAR VOLUME 82.5 fL (83.0-99.0); MEAN PLATELET VOLUME 8.6 fL (9.4-12.3); MONOCYTES ABSOLUTE AUTO 0.31 K/uL (0.00-0.80); MONOCYTES PERCENT AUTO 2.9 % (0.0-8.0); NEUTROPHILS ABSOLUTE AUTO 8.21 K/uL (1.80-7.70); NEUTROPHILS PERCENT AUTO 77.3 % (41.0-71.0); PLATELET COUNT,PLT 397 K/uL (150-400); RED BLOOD CELL COUNT 4.81 M/uL (4.10-5.30); WHITE BLOOD CELL COUNT,WBC 10.62 K/uL (3.9-11.3)
[2023-06-03 17:14] LABS: A/G RATIO 1.3 (0.9-1.6); ALBUMIN 4.8 g/dL (3.4-5.0); BILIRUBIN TOTAL 0.7 mg/dL (0.2-1.0); CALCIUM 9.7 mg/dL (8.5-10.1); CARBON DIOXIDE,CO2 25.4 mmol/L (21.0-32.0); EST CRCL DRUG DOSING (CG) 66.51 mL/min; PROTEIN TOTAL,TP 8.6 g/dL (6.4-8.2)
[2023-06-03] MEDS ORDERED: Meclizine 25 MG Tab PO ONE (17:50)
== END 2023-06-03 18:47 | disposition home or self-care (01) ==
LOC: MW.ED 16:18
DX: R51.9 Headache, unspecified (principal); R42 Dizziness and giddiness; J45.909 Unspecified asthma, uncomplicated; Z88.2 Allergy status to sulfonamides
CPT/HCPCS: 36415; 80053; 83690; 84703; 85025; 93005; 96361; 96374; 96375; 99284; A9270; J1200; J1885; J2765; J7030; 93010

== ENCOUNTER 2024-11-10 16:26 | Emergency (ER) | payer BC ==
[2024-11-10 16:50] LABS: APPEARANCE,URINE SLT CLOUDY; BILIRUBIN,URINE NEGATIVE (NEGATIVE); COLOR,URINE YELLOW; GLUCOSE,URINE NEGATIVE (NEGATIVE); KETONES,URINE TRACE mg/dL (NEGATIVE); LEUKOCYTE ESTERASE,URINE NEGATIVE (NEGATIVE); NITRITE,URINE NEGATIVE (NEGATIVE); OCCULT BLOOD,URINE NEGATIVE (NEGATIVE); PH,URINE 5.5 (5.0-8.0); PROTEIN,URINE 100 mg/dL (NEGATIVE); UROBILINOGEN,URINE 0.2 EU/dL (<2.0)
[2024-11-10 17:07] LABS: BASOPHILS ABSOLUTE AUTO 0.02 K/uL (0.00-0.20); BASOPHILS PERCENT AUTO 0.3 % (0.0-1.0); EOSINOPHILS ABSOLUTE AUTO 0.01 K/uL (0.00-0.45); EOSINOPHILS PERCENT AUTO 0.1 % (0.0-6.0); HEMOGLOBIN 13.2 g/dL (12.0-16.0); IMMATURE GRAN ABSOLUTE AUTO 0.02 K/uL (0.00-0.05); IMMATURE GRAN PERCENT AUTO 0.3 % (0.0-0.4); LYMPHOCYTES ABSOLUTE AUTO 1.27 K/uL (1.00-4.80); LYMPHOCYTES PERCENT AUTO 16.9 % (24.0-44.0); MEAN CORPUSCULAR HEMOGLOBIN 29.3 pg (28.0-32.0); MEAN CORPUSCULAR HGB CONC 33.8 g/dL (32.0-36.0); MEAN CORPUSCULAR VOLUME 86.7 fL (83.0-99.0); MEAN PLATELET VOLUME 8.9 fL (9.4-12.3); MONOCYTES ABSOLUTE AUTO 0.57 K/uL (0.00-0.80); MONOCYTES PERCENT AUTO 7.6 % (0.0-8.0); NEUTROPHILS ABSOLUTE AUTO 5.63 K/uL (1.80-7.70); NEUTROPHILS PERCENT AUTO 74.8 % (41.0-71.0); PLATELET COUNT,PLT 202 K/uL (150-400); WHITE BLOOD CELL COUNT,WBC 7.52 K/uL (3.9-11.3)
[2024-11-10 17:14] LABS: BACTERIA,URINE 1+ (NEGATIVE); EPITHELIAL CELLS,URINE MODERATE (NONE-FEW); RBC,URINE 0-2 (0-2/HPF)
[2024-11-10 17:46] LABS: A/G RATIO 1.2 (0.9-1.6); ALANINE AMINOTRANSFERASE,ALT 16 IU/L (14-63); ALBUMIN 4.2 g/dL (3.4-5.0); ALKALINE PHOSPHATASE 52 U/L (46-116); ASPARTATE AMNIOTRANSFERASE,AST 20 IU/L (15-37); BILIRUBIN TOTAL 0.6 mg/dL (0.2-1.0); BLOOD UREA NITROGEN,BUN 12 mg/dL (7.0-18.0); CALCIUM 8.9 mg/dL (8.5-10.1); CARBON DIOXIDE,CO2 23.2 mmol/L (21.0-32.0); CHLORIDE,CL 99 mmol/L (98-107); GLUCOSE RANDOM 105 mg/dL (74-106); MAGNESIUM 1.8 mg/dL (1.8-2.4); POTASSIUM,K 3.9 mmol/L (3.5-5.1); PROTEIN TOTAL,TP 7.8 g/dL (6.4-8.2); SODIUM,NA 133 mmol/L (136-145)
[2024-11-10 17:47] LABS: ESTIMATED GFR 74 mL/min (>60)
[2024-11-10] MEDS: cefTRIAXone 2 GM in Sodium Chloride 0.9% 50 ML IV ONE (18:07)
[2024-11-10] MEDS: Sodium Chloride 0.9% 1,000 ML IV ONE ×2 (18:07→18:09)
[2024-11-10] MEDS: Azithromycin 500 MG in Sodium Chloride 0.9% 250 ML IV ONE (18:22)
== END 2024-11-10 19:17 | disposition home or self-care (01) ==
LOC: MW.ED 16:26
DX: J18.9 Pneumonia, unspecified organism (principal); I10 Essential (primary) hypertension; J45.909 Unspecified asthma, uncomplicated; Z88.2 Allergy status to sulfonamides; Z79.899 Other long term (current) drug therapy; Z75.8 Other problems related to medical facilities and other health care
CPT/HCPCS: 36415; 71046; 80053; 81001; 83735; 85025; 87428; 96365; 96375; 99283; J0456; J0696; J1100; J7030; J7050; 99284